=== PATIENT | male | born 1985 | race Hispanic/Latino ===

== ENCOUNTER 2019-04-16 10:00 | Emergency (ER) | payer BC ==
[2019-04-16] MEDS ORDERED: AZITHROMYCIN 250 MG TABLET PO ONE (10:26)
[2019-04-16] MEDS ORDERED: CEFTRIAXONE SODIUM 1 GM ONE (10:26)
[2019-04-16] MEDS ORDERED: LIDOCAINE HCL-MPF 1% 2ML VIAL ONE (10:26)
== END 2019-04-16 11:16 | disposition home or self-care (01) ==
LOC: EDH 10:00
DX: N34.2 Other urethritis (principal); Z20.2 Contact with and (suspected) exposure to infections with a predominantly sexual mode of transmission; Z91.013 Allergy to seafood
CPT/HCPCS: 87486; 87797; 96372; 99284; J0696; J3490